=== PATIENT | female | born 1965 ===

== ENCOUNTER 2024-05-16 14:19 | Outpatient (NON) | payer MEDICARE, SELFPAY ==
[2024-05-16 14:39] LABS: Hematocrit 34.4 % (35.0-49.0); Hemoglobin 11.2 g/dL (12.0-15.0); Mean Corpuscular HGB Conc 32.6 g/dL (32-36); Mean Corpuscular Hemoglobin 30.3 pg (27.0-31.0); Mean Platelet Volume 10.8 fl (9.2-11.8); Platelet Count Result 169 K/mm3 (150-420); Red Cell Distribution Width 13.6 % (11.6-14.4); White Blood Count 4.8 K/mm3 (4.8-10.8)
[2024-05-16 15:01] LABS: Alanine Aminotransferase 22 U/L (14-59); Albumin Level 3.4 g/dL (3.4-5.0); Alkaline Phosphatase 85 U/L (46-116); Anion Gap 8 mmol/L (4-12); Aspartate Amino Transferase 14 U/L (15-37); Bilirubin,Total 0.2 mg/dL (0.00-1.00); Blood Urea Nitrogen 30 mg/dL (7-18); Calcium 8.8 mg/dL (8.5-10.1); Carbon Dioxide 30 mmol/L (21-32); Chloride 98 mmol/L (98-108); Estimated Glomerular Filt Rate > 60; Glucose 150 mg/dL (70-99); Osmolality Calculated 291 mOsm/kg (285-295); Potassium 3.7 mmol/L (3.5-5.1); Sodium 136 mmol/L (136-145); Total Protein 6.7 g/dL (6.4-8.2)
--- OUTSIDE RECORDS SUMMARY | 2024-05-18 18:51 | XMS_ITS ---
Author Organization Unknown Address [address] [place] [address] [phone] Phone Care Team Providers Care Manager Risk Name Role Phone RANDY ELDER Attending Unavailable Immunization Immunization Date Status Additional Notes Code Code System Tdap 04/01/2018 Completed 115 CVX Influenza, split virus, trivalent, PF 03/16/2013 Completed 140 CVX Influenza, split virus, quadrivalent, PF 01/31/2016 Completed 150 CVX Influenza, split virus, quadrivalent, PF 04/01/2018 Completed 150 CVX COVID-19, mRNA, LNP-S, PF, 1 00 mcg/0.5mL dose or 50 mcg/0.25mL dose 12/24/2020 Completed 207 CVX COVID-19, mRNA, LNP-S, PF, 1 00 mcg/0.5mL dose or 50 mcg/0.25mL dose 02/13/2021 Completed 207 CVX Social History Type Status Start Date End Date Code Code Syst em Smoking History Current every day smoker [id number] SNOMED CT Sex Female Medications Medication Start Date End Date Route Frequency Dose Code Code System Medication Instructions Home Meds Afluria Formula PFS 45MCG/0.5ML Intramuscular Suspension 04/21/2024 Unknown INTRAMUSCULAR X1 0.5 MILLILITER [id number] RxNorm GIVE 0.5 MILLILITER INTRAMUSCULAR X1 Ampicillin 500MG Oral Capsule 04/21/2024 Unknown ORAL FOU R ESME ES A DAY 500 MILLIGRAMS 092512 RxNorm TAKE 500 MILLIGRAMS ORAL FOUR TIMES A DAY Aptiom 200MG Oral Tablet 04/21/2024 Unknown ORAL ONC E A DAY 200 MILLIGRAMS [id number] RxNorm TAKE 200 MILLIGRAMS ORAL ONCE A DAY Aptiom 800MG Oral Tablet 04/21/2024 Unknown ORAL ONC E A DAY 800 MILLIGRAMS 2224423 RxNorm TAKE 800 MILLIGRAMS ORAL ONCE A DAY Aspirin 81MG Oral Tablet, Enteric Coated 04/21/2024 Unknown ORAL ONC E A DAY 81 MILLIGRAMS 174329 RxNorm TAKE 81 MILLIGRAMS ORAL ONCE A DAY CeleBREX 100MG Oral Capsule 04/21/2024 Unknown ORAL ONC E A DAY 100 MILLIGRAMS 697758 RxNorm TAKE 100 MILLIGRAMS ORAL ONCE A DAY Citalopram 20MG Oral Tablet 04/21/2024 Unknown ORAL ONC E A DAY 20 MILLIGRAMS [id number] RxNorm TAKE 20 MILLIGRAMS ORAL ONCE A DAY Gabapentin 800MG Oral Tablet 04/21/2024 Unknown ORAL FOU R ESME ES A DAY 800 MILLIGRAMS 321906 RxNorm TAKE 800 MILLIGRAMS ORAL FOUR TIMES A DAY HYDROcodone bitartrate-verena taminophen 5MG-325MG Oral Tablet 04/21/2024 Unknown ORAL NEE DED LIBAN RY 6 RICO RS 1 TABLET 613114 RxNorm TAKE 1 TABLET ORAL NEEDED EVERY 6 HOURS Metamucil [facility] Fiber 0.52GM Oral Capsule 04/21/2024 Unknown ORAL ONC E A DAY 0.52 GM [id number] RxNorm TAKE 0.52 GM ORAL ONCE A DAY Rosuvastatin 20MG Oral Tablet 04/21/2024 Unknown ORAL AT BED ESME E 20 MILLIGRAMS 860328 RxNorm TAKE 20 MILLIGRAMS ORAL AT BEDTIME ZyrTEC 10MG Oral Tablet 04/21/2024 Unknown ORAL ONC E A DAY 10 MILLIGRAMS RxNorm TAKE 10 MILLIGRAMS ORAL ONCE A DAY Afluria 7090-8574 Formula PFS 45MCG/0.5ML Intramuscular Suspension 04/21/2024 Unknown INTRAMUSCULAR X1 0.5 MILLILITER 9195210 RxNorm GIVE 0.5 MILLILITER INTRAMUSCULAR X1 clonazePAM 0.5MG Oral Tablet 04/21/2024 Unknown ORAL TWI CE A DAY 0.5 MILLIGRAMS 19740602 RxNorm TAKE 0.5 MILLIGRAMS ORAL TWICE A DAY clonazePAM 1MG Oral Tablet 04/21/2024 Unknown ORAL AT BED ESME E 1 MILLIGRAMS 19740603 RxNorm TAKE 1 MILLIGRAMS ORAL AT BEDTIME oxyBUTYnin 10MG Oral Tablet, Extended Release 04/21/2024 Unknown ORAL ONC E A DAY 10 MILLIGRAMS RxNorm TAKE 10 MILLIGRAMS ORAL ONCE A DAY traZODone hydrochloride 100MG Oral Tablet 04/21/2024 Unknown ORAL AT BED ESME E 100 MILLIGRAMS 395336 RxNorm TAKE 100 MILLIGRAMS ORAL AT BEDTIME Afluria Formula PFS 45MCG/0.5ML Intramuscular Suspension 04/21/2024 Unknown INTRAMUSCULAR X1 0.5 MILLILITER 4610596 RxNorm GIVE 0.5 MILLILITER INTRAMUSCULAR X1 Ampicillin 500MG Oral Capsule 04/21/2024 Unknown ORAL FOU R ESME ES A DAY 500 MILLIGRAMS 213990 RxNorm TAKE 500 MILLIGRAMS ORAL FOUR TIMES A DAY Afluria Formula PFS 45MCG/0.5ML Intramuscular Suspension 04/21/2024 Unknown INTRAMUSCULAR X1 0.5 MILLILITER 9213107 RxNorm GIVE 0.5 MILLILITER INTRAMUSCULAR X1 Ampicillin 500MG Oral Capsule 04/21/2024 Unknown ORAL FOU R ESME ES A DAY 500 MILLIGRAMS 389855 RxNorm TAKE 500 MILLIGRAMS ORAL FOUR TIMES A DAY calcium + vitamin d 04/21/2024 Unknown ORAL FOU R ESME ES A DAY 1 TABLET RxNorm TAKE 1 TABLET ORAL FOUR TIMES A DAY Hospital Discharge Instructions Should you have any questions prior to discharge, please contact a member of your healthcare team. If you have left the hospital and have any questions, please contact your primary care physician. Reason For Referral No Data Found Allergies and Adverse Reactions Allergy Substance Reaction Severity Start Date Concern Status Code Code System PENICILLINS (CLASS) Hives (SNOMED-CT: 994366920) Moderate Active 53427 RxNorm ASPIRIN Moderate Active PROCHLORPERAZINE Moderate Active DILAUDID Lethargy (SNOMED-CT: 888806552) Moderate Active 365350 RxNorm DILANTIN UNKNOWN (SNOMED-CT: null) Active RxNorm COMPAZINE Rash (SNOMED-CT: 389840815) Active 20340730 RxNorm Plan of Treatment COVID-19 Drive Thru Screen 01/08/2020 Encounters Encounter Diagnosis Start Date Code Code Sys tem Pressure ulcer of right hip, stage 3 04/18/2024 SNOMED-CT Personal Care Team Section Performer Name Performer Role Active Date Inactive Da te
--- OUTSIDE RECORDS SUMMARY | 2024-05-18 18:51 | XMS_ITS ---
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 04/19/2024 06:47 final BUN/CREAT 46.7 04/19/2024 06:00 04/19/2024 06:47 final AGE 58 04/19/2024 06:00 04/19/2024 06:47 final eGFR NON-AFR 109 ml/min 04/19/2024 06:00 04/19/2024 06:47 final eGFR AFR AMER 132 ml/min 04/19/2024 06:00 04/19/2024 06:47 final WBC 5.0 10^3uL L=4.8 H=10.8 04/19/2024 06:00 04/19/2024 06:47 final RBC 3.60 L 10^6uL L=4.20 H=5.40 04/19/2024 06:00 04/19/2024 06:47 final HEMOGLOBIN 10.9 L g/dL L=12.0 H=16.0 04/19/2024 06:00 04/19/2024 06:47 final HEMATOCRIT 34.7 L VOL% L=37.0 H=47.0 04/19/2024 06:00 04/19/2024 06:47 final MCV 96.4 fL L=81.0 H=99.0 04/19/2024 06:00 04/19/2024 06:47 final MCH 30.3 pg L=27.0 H=32.0 04/19/2024 06:00 04/19/2024 06:47 final MCHC 31.4 L g/dL L=32.0 H=36.0 04/19/2024 06:00 04/19/2024 06:47 final PLATELETS 175 10^3uL L=100 H=400 04/19/2024 06:00 04/19/2024 06:47 final RDW 12.8 % L=11.7 H=15.5 04/19/2024 06:00 04/19/2024 06:47 final %GRAN 47.9 % L=40.0 H=70.0 04/19/2024 06:00 04/19/2024 06:47 final %LYMPH 38.3 % L=20.0 H=45.0 04/19/2024 06:00 04/19/2024 06:47 final %MONO 10.4 H % L=2.0 H=10.0 04/19/2024 06:00 04/19/2024 06:47 final %EOS 2.6 % L=0.0 H=6.0 04/19/2024 06:00 04/19/2024 06:47 final %BASO 0.4 % L=0.0 H=3.0 04/19/2024 06:00 04/19/2024 06:47 final #NEUT 2.4 10^3uL L=1.9 H=7.6 04/19/2024 06:00 04/19/2024 06:47 final #LYMPH 1.9 10^3uL L=0.9 H=4.9 04/19/2024 06:00 04/19/2024 06:47 final #MONO 0.5 10^3uL L=0.1 H=0.9 04/19/2024 06:00 04/19/2024 06:47 final #EOS 0.1 10^3uL L=0.0 H=0.6 04/19/2024 06:00 04/19/2024 06:47 final #BASO 0.02 10^3uL L=0.00 H=0.10 04/19/2024 06:00 04/19/2024 06:47 final #IM GRANS 0.0 10^3uL L=0.0 H=7.0 04/19/2024 06:00 04/19/2024 06:47 final %IM GRANS 0.4 % L=0.0 H=5.0 04/19/2024 06:00 04/19/2024 06:47 final %NRB 0.0 L=0.0 H=0.2 04/19/2024 06:00 04/19/2024 06:47 final #NRB 0.000 L=0.000 H=0.012 04/19/2024 06:00 04/19/2024 06:47 final MANUAL DIFF NOT INDICATED 04/19/2024 06:00 04/19/2024 06:47 final RBC MORPH NOT INDICATED 04/19/2024 06:00 04/19/2024 06:47 final PHYSICAL EXAM: Most Recent Vital Signs BP (mm/Hg) BP Position/Site Heart Rate Resp Temp (F) SPO2% O2 Device Height (in) Weight (kg) 126/62 Lying/Left Arm 64 18 97.5 Axillary 96 % Room Air 21% 67 in 62.8 kg General: chronically ill, not in acute distress CV: S1S2 w/ RRR, (-) MRC, peripheral pulses intact and symmetrical Resp: CTA w/o, no resp distress GI: Snt, nd w/ bs Musculoskeletal: MAL, (-) pedal edema Skin: 3 cm in diameter on the lateral right hip lesion with approxiamtely 1 and half cm deep. slough on the base. no erythema noted. no foul smell or driange noted. dressing in place Neuro: paraplegia. alert and oriented x 3 Psych: Alert and oriented x3, appropriate mood and affect DIAGNOSTICS: xr femur: No acute osseous abnormality. Soft tissue ulcer lateral to the greater trochanter of the right hip. No definite associated osteolytic abnormality by plain radiograph. ASSESSMENT AND PLAN: Patient is a 58-year-old partial paraplegic with history of chronic pressure ulcer stage II to the right hip, mild cognitive deficit who had arrived at the emergency room with complaints of increased drainage from the right hip wound. Patient herself denied any fevers or chills. Had been sent by the home health nurse after patient had been on 3 days of Levaquin/doxycycline for concerns of possible infection due to increased drainage of yellow-green substance from the right hip. Patient had no other symptoms. Slightly tender to palpation. This wound has been present for greater than a year. It has been managed by both her who is a nurse and the home health nurses. Has not required hospitalization for this before. Review of the laboratory studies from the emergency room sodium of 134, potassium 4.6, chloride 95, CO2 32, BUN/creatinine 29/0.7 with a glucose of 87. LFTs were unremarkable and noncontributory. Lactic acid was normal at 1.5. CRP elevated at 13.2. White blood cell count of 8.1, hemoglobin of 11.5, MCV of 94.5, platelet count of 195. Neutrophil predominance of 67.3%. Urinary analysis was negative for UTI. Specific gravity greater than 1.030. ESR elevated at 74. Blood cultures and wound cultures are pending. Patient is placed on observation services 04/18/2024.patient started on vancomycin/meropenem which will be continued until wound culture finalization. wound care team to see for dressing changes as well continue to monitor for wound cutlure and blood cutlrue. continue current medications resumed home medications. 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 patient feels better. wound is still with some slough in there. pain is better. remains afebrile. OBJECTIVE DATA: Vital signs have been reviewed Lab(s) have been ordered and/or reviewed Intake/Output has been reviewed Radiologic/Diagnostic testing has been ordered and/or reviewed Home Meds List calcium + vitamin d clonazePAM 0.5MG Oral Tablet Multivitamin Oral Tablet Gabapentin 800MG Oral Tablet Aptiom 800MG Oral Tablet Aptiom 200MG Oral Tablet Citalopram 20MG Oral Tablet CeleBREX 100MG Oral Capsule oxyBUTYnin 10MG Oral Tablet, Extended Release Rosuvastatin 20MG Oral Tablet traZODone hydrochloride 100MG Oral Tablet clonazePAM 1MG Oral Tablet Aspirin 81MG Oral Tablet, Enteric Coated ZyrTEC 10MG Oral Tablet Metamucil [facility] Fiber 0.52GM Oral Capsule Ordered Meds List ACETAMINOPHEN (TYLENOL) 325MG TAB, PRN Q6H ONDANSETRON (ZOFRAN) 2MG/ML 2ML SDV, PRN Q6H MELATONIN 3MG TABLET, PRN QHS CALCIUM CARB (TUMS) 200 EL: 500MG TAB, PRN QID HEPARIN 5000 UNITS/ML 1ML SDV, Q8H hYDROcodone/APAP (NORCO) 5/325 MG TAB, PRN Q6H AFLURIA (INFLUENZA) VACCINE 0.5ML PFS, X1 MEROPENEM (MERREM) 1GM/100ML NS IVPB, Q8H VANCOMYCIN 1000MG/200ML WATER PREMIX, Q12H ASPIRIN EC (ECOTRIN) 81MG TAB, DAILY ATORVASTATIN (LIPITOR) 40MG TAB, QHS CELECOXIB (celeBREX) 100MG CAP, DAILY CETIRIZINE (ZYRTEC) 10MG TABLET, DAILY CITALOPRAM (celeXA) 10MG TABLET, DAILY GABAPENTIN (NEURONTIN) 400MG CAP, QID MULTIVITAMIN (THERAGRAN) TAB, DAILY PSYLLIUM HUSK (METAMUCIL) 0.52GM CAP, DAILY clonazePAM (KlonoPIN) 0.5MG TAB, BID clonazePAM (KlonoPIN) 0.5MG TAB, QHS traZODone (DESYREL) 50MG TAB, QHS NF-Calcium + D3 Oral Tab 250MG-125IU, QID NF-Aptiom Oral Tablet 200MG, DAILY NF-Aptiom Oral Tablet 800MG, DAILY zzNF-OXYBUTYNIN CHLORIDE 10MG, DAILY LAB(S): Lab Results: Last 8 Hours: No Labs Available PHYSICAL EXAM: Most Recent Vital Signs BP (mm/Hg) BP Position/Site Heart Rate Resp Temp (F) SPO2% O2 Device Height (in) Weight (kg) 116/62 Lying/Right Arm 72 16 97.7 Oral 92 % Room Air 21% 67 in 70.2 kg General: chronically ill, not in acute distress CV: S1S2 w/ RRR, (-) MRC, peripheral pulses intact and symmetrical Resp: CTA w/o, no resp distress GI: Snt, nd w/ bs Musculoskeletal: MAL, (-) pedal edema Skin: 3 cm in diameter on the lateral right hip lesion with approxiamtely 1 and half cm deep. slough on the base. no erythema noted. no foul smell or drainage noted. dressing in place Neuro: paraplegia. alert and oriented x 3 Psych: Alert and oriented x3, appropriate mood and affect DIAGNOSTICS: xr femur: No acute osseous abnormality. Soft tissue ulcer lateral to the greater trochanter of the right hip. No definite associated osteolytic abnormality by plain radiograph. ASSESSMENT AND PLAN: Patient is a 58-year-old partial paraplegic with history of chronic pressure ulcer stage II to the right hip, mild cognitive deficit who had arrived at the emergency room with complaints of increased drainage from the right hip wound. Patient herself denied any fevers or chills. Had been sent by the home health nurse after patient had been on 3 days of Levaquin/doxycycline for concerns of possible infection due to increased drainage of yellow-green substance from the right hip. Patient had no other symptoms. Slightly tender to palpation. This wound has been present for greater than a year. It has been managed by both her who is a nurse and the home health nurses. Has not required hospitalization for this before. Review of the laboratory studies from the emergency room sodium of 134, potassium 4.6, chloride 95, CO2 32, BUN/creatinine 29/0.7 with a glucose of 87. LFTs were unremarkable and noncontributory. Lactic acid was normal at 1.5. CRP elevated at 13.2. White blood cell count of 8.1, hemoglobin of 11.5, MCV of 94.5, platelet count of 195. Neutrophil predominance of 67.3%. Urinary analysis was negative for UTI. Specific gravity greater than 1.030. ESR elevated at 74. Blood cultures and wound cultures are pending. Patient is placed on observation services 04/18/2024.patient started on vancomycin/meropenem which will be continued until wound culture finalization. wound care team to see for dressing changes as well continue to monitor for wound culture and blood culture. wound culture with strep, blood culture negative to date. await sensitivity for discharge potentially in next 24-48 hrs. continue current medications resumed home medications. Diet: Cardiac diet DVT Prophy: Heparin 5000 subcutaneous every 8 hours 1997 leading to partial paraplegia and mild cognitive deficit [employer]MIN[employer]S OF HE[employer] (SDOH) IMPACTING CARE: none Critical Care Time: (If applicable) Tobacco Cessation/Time: (If applicable) Total Clinical Time: (If applicable)
--- OUTSIDE RECORDS SUMMARY | 2024-05-18 18:51 | XMS_ITS ---
Author Organization Unknown Address [address] [place] [address] [phone] Phone Care Team Providers Care Sales Advisor Name Role Phone GABRIELLA KANDICE Attending Unavailable Immunization Immunization Date Status Additional [...] em Smoking History Current every day smoker [id number] SNOMED CT Sex Female Medications Medication Start Date End Date Route Frequency Dose Code Code System Medication Instructions Home Meds Afluria Formula PFS 45MCG/0.5ML Intramuscular Suspension 04/21/2024 Unknown INTRAMUSCULAR X1 0.5 MILLILITER [id number] RxNorm GIVE 0.5 MILLILITER INTRAMUSCULAR X1 Ampicillin 500MG Oral Capsule 04/21/2024 Unknown ORAL FOU R ESME ES A DAY 500 MILLIGRAMS [id number] RxNorm TAKE 500 MILLIGRAMS ORAL FOUR TIMES A DAY Aptiom 200MG Oral Tablet 04/21/2024 Unknown ORAL ONC E A DAY 200 MILLIGRAMS [id number] RxNorm TAKE 200 MILLIGRAMS ORAL ONCE A DAY Aptiom 800MG Oral Tablet 04/21/2024 Unknown ORAL ONC E A DAY 800 MILLIGRAMS [id number] RxNorm TAKE 800 MILLIGRAMS ORAL ONCE A DAY Aspirin 81MG Oral Tablet, Enteric Coated 04/21/2024 Unknown ORAL ONC E A DAY 81 MILLIGRAMS [id number] RxNorm TAKE 81 MILLIGRAMS ORAL ONCE A DAY CeleBREX 100MG Oral Capsule 04/21/2024 Unknown ORAL ONC E A DAY 100 MILLIGRAMS [id number] RxNorm TAKE 100 MILLIGRAMS ORAL ONCE A DAY Citalopram 20MG Oral Tablet 04/21/2024 Unknown ORAL ONC E A DAY 20 MILLIGRAMS [id number] RxNorm TAKE 20 MILLIGRAMS ORAL ONCE A DAY Gabapentin 800MG Oral Tablet 04/21/2024 Unknown ORAL FOU R ESME ES A DAY 800 MILLIGRAMS [id number] RxNorm TAKE 800 MILLIGRAMS ORAL FOUR TIMES A DAY HYDROcodone bitartrate-verena taminophen 5MG-325MG Oral Tablet 04/21/2024 Unknown ORAL NEE DED LIBAN RY 6 RICO RS 1 TABLET [id number] RxNorm TAKE 1 TABLET ORAL NEEDED EVERY 6 HOURS Metamucil [facility] Fiber 0.52GM Oral Capsule 04/21/2024 Unknown ORAL ONC E A DAY 0.52 GM [id number] RxNorm TAKE 0.52 GM ORAL ONCE A DAY Rosuvastatin 20MG Oral Tablet 04/21/2024 Unknown ORAL AT BED ESME E 20 MILLIGRAMS [id number] RxNorm TAKE 20 MILLIGRAMS ORAL AT BEDTIME ZyrTEC 10MG Oral Tablet 04/21/2024 Unknown ORAL ONC E A DAY 10 MILLIGRAMS RxNorm TAKE 10 MILLIGRAMS ORAL ONCE A DAY Afluria 0619-6603 Formula PFS 45MCG/0.5ML Intramuscular Suspension 04/21/2024 Unknown INTRAMUSCULAR X1 0.5 MILLILITER [id number] RxNorm GIVE 0.5 MILLILITER INTRAMUSCULAR X1 clonazePAM [...] ORAL AT BED ESME E 100 MILLIGRAMS [id number] RxNorm TAKE 100 MILLIGRAMS ORAL AT BEDTIME Afluria Formula PFS 45MCG/0.5ML Intramuscular Suspension 04/21/2024 Unknown INTRAMUSCULAR X1 0.5 MILLILITER [id number] RxNorm GIVE 0.5 MILLILITER INTRAMUSCULAR X1 Ampicillin 500MG Oral Capsule 04/21/2024 Unknown ORAL FOU R ESME ES A DAY 500 MILLIGRAMS [id number] RxNorm TAKE 500 MILLIGRAMS ORAL FOUR TIMES A DAY Afluria Formula PFS 45MCG/0.5ML Intramuscular Suspension 04/21/2024 Unknown INTRAMUSCULAR X1 0.5 MILLILITER [id number] RxNorm GIVE 0.5 MILLILITER INTRAMUSCULAR X1 Ampicillin 500MG Oral Capsule 04/21/2024 Unknown ORAL FOU R ESME ES A DAY 500 MILLIGRAMS [id number] RxNorm TAKE 500 MILLIGRAMS ORAL FOUR TIMES [...] Code Code System PENICILLINS (CLASS) Hives (SNOMED-CT: 585892215) Moderate Active 10265 RxNorm ASPIRIN Moderate Active PROCHLORPERAZINE Moderate Active DILAUDID Lethargy (SNOMED-CT: 039533811) Moderate Active 665202 RxNorm DILANTIN UNKNOWN (SNOMED-CT: null) Active RxNorm COMPAZINE Rash (SNOMED-CT: 954840747) Active 20340730 RxNorm Plan of Treatment COVID-19 Drive Thru Screen 01/08/2020 Encounters Encounter Diagnosis Start Date Code Code Sys tem Unspecified symptoms and sig ns involving the genitourinary system 02/09/2024 SNOMED-CT Personal Care Team Section Performer Name Performer Role Active Date Inactive Da sumi
== END 2024-05-16 14:20 | disposition home or self-care (01) ==
LOC: CHSLAB 14:28
DX: Z79.899 Other long term (current) drug therapy (principal); Z76.0 Encounter for issue of repeat prescription
CPT/HCPCS: 36415; 80053; 85027